=== PATIENT | male | born 1950 | race Caucasian/White ===

== ENCOUNTER → 2016-10-07 | Outpatient (CLI) | payer MEDICARE, OTHER ==
[~2016-10-07] MED LIST: KADIAN30 MG; PERCOCET10; SOMA250 MG
--- NOTE | ~2016-10-07 | MR104 ---
[facility] A Service of [facility] & [facility] RADIOLOGY TEXT RESULTS PATIENT: MUKESH MASTERSON LOCATION: [facility] : 50 UNIT #: [id number] AGE: [address]: Cherie Valencia SEX: M ORDER DR: [id number] [facility] [address] [place], [place] [address] [id number] O MR#: [id number] Acc #: [id number] NAME: MUKESH MASTERSON : 1950 SEX: M STUDY DATE/TIME: 10/07/2016 6:56 UNIT: [facility] ROOM: STUDY DESCRIPTION: MR Knee Wo Contrast Rt Attending Physician: Cherie Valencia P.A.-C. Referring Physician: Cherie Valencia P.A.-C. Ordering Physician: Cherie Valencia P.A.-C. Primary Care Physician: Maria Ines Moctezuma M.D. MRI CENTER REPORT This report is preliminary unless electronic signature is present. EXAM MRI of the right knee, 10/07/2016. COMPARISON Right knee radiographs, 09/15/2016. HISTORY Order states osteoarthritis, right knee swelling. History sheet states no known trauma. Five weeks ago, his knee became swollen and painful. Fluid drained. Improvement for 2 weeks then knee started swelling again. Anterior, medial and lateral pain. No knee surgery. FINDINGS There is a ibof-na-vzhhhbrc joint effusion with subtle synovitis. No popliteal cyst is demonstrated. There is patellofemoral arthrosis with joint space narrowing, fairly extensive moderate and high-grade chondromalacia patella, as well as a large greater than 1 cm focus of grade 4 chondromalacia of the medial femoral trochlear facet. The quadriceps and patellar tendons are intact. Cruciate ligaments are normal. The lateral meniscus, lateral collateral ligament complex, and popliteus tendon are normal. There is a minimal low grade chondromalacia of the weightbearing lateral compartment. There is moderately advanced medial compartment arthrosis with joint space narrowing, high-grade weightbearing medial femoral condyle chondromalacia, prominent subarticular cystic change and/or enthesopathic cyst near the posterior root insertion of the medial meniscus on the tibia, marginal osteophyte formation, and joint space narrowing. There is a longitudinal mildly complex tear of the posterior half of the medial meniscus with free STS. [facility] A Service of [facility] RADIOLOGY TEXT RESULTS PATIENT: MUKESH MASTERSON LOCATION: [facility] : 50 UNIT #: [id number] AGE: [address]: Cherie Valencia SEX: M ORDER DR: margin and horizontal tearing, likely a degenerative tear. There is no definite displaced meniscal fragment. The MCL is intact. There is mild subarticular marrow edema of the peripheral and deep aspect of the medial femoral condyle. There is no marrow lesion or fracture. There are scattered loose bodies including radiographically calcified loose body just cranial to the lateral tibial spine anteriorly, posterior to the distal PCL, and migrated down the popliteus hiatus into the popliteus sheath where there are sizable ossified loose bodies. IMPRESSION 1. 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 2. Longitudinal mildly complex likely degenerative tear medial meniscus without a displaced flap or fragment. 3. Mild joint effusion with synovitis. 4. Intraarticular articular loose bodies. Large loose bodies are also noted to have migrated down the popliteus sheath posterolaterally. 5. The lateral meniscus and cruciate ligaments are intact. Dictated by... Lena Mcdermott M.D. THIS IS AN ELECTRONICALLY VERIFIED REPORT Lena Mcdermott M.D. at 10/08/2016 10:31 AM ALYSSA/james TD: 10/08/2016 07:14 JOB #: [id number] MRI CENTER REPORT Page 1 of 1 COPY
== END | disposition home or self-care (01) ==
LOC: CMRI 06:29
DX: M25.461 Effusion, right knee (principal); M17.11 Unilateral primary osteoarthritis, right knee; M23.41 Loose body in knee, right knee
CPT/HCPCS: 73721